=== PATIENT | female | born 1945 | race Caucasian/White ===

== ENCOUNTER → 2016-08-02 | Outpatient (CLI) | payer BC | LOC: COL.RAD 14:17 | DX: M25.532 Pain in left wrist (principal); M67.432 Ganglion, left wrist; M19.032 Primary osteoarthritis, left wrist ==

== ENCOUNTER → 2016-08-15 | Outpatient (CLI) | payer BC | LOC: MC.RAD 11:40 | DX: Z12.31 Encounter for screening mammogram for malignant neoplasm of breast (principal) ==

== ENCOUNTER → 2016-08-19 | Outpatient (CLI) | payer BC | LOC: MC.RAD 10:30 | DX: Z12.39 Encounter for other screening for malignant neoplasm of breast (principal) ==

== ENCOUNTER 2018-12-11 12:43 | Inpatient (IN) | payer BC, MEDICARE ==
[~2018-12-11] VITALS: Ht 167.6 cm; Wt 111.8 kg
[2018-12-11] VITALS (344 sets, daily range): BP systolic 100–126; BP diastolic 66–85; PULSE 75–131; TEMP 97.8–98.1; O2SAT 89–100
[2018-12-11] MEDS ORDERED: WELLBUTRIN XL300 M1 PO (13:18)
[2018-12-11] MEDS ORDERED: TIROSINT88 MC1 PO (13:19)
[2018-12-11] MEDS ORDERED: ALEVE 220MG220 MG (13:19)
[2018-12-11] MEDS ORDERED: ASPIRIN 81M81 MG/TA2 PO (13:20)
[2018-12-11] MEDS ORDERED: ZANTAC 150150 MG (13:20)
[2018-12-11] MEDS ORDERED: PREDNISONE20 MG PO (13:21)
[2018-12-11 13:26] LABS: HEMATOCRIT 39.6 % (37.0-47.0); HEMOGLOBIN 12.8 g/dl (12.5-16.0); MEAN CELL VOLUME 88 fl (80.0-100.0); MEAN CORPUSCULAR HEMOGLOBIN 28 pg (27.0-31.0); MEAN CORPUSCULAR HGB CONC 32 g/dl (33.0-37.0); MEAN PLATELET VOLUME 9.4 fl (7.4-10.4); PLATELET COUNT 410 K/mm3 (130-400); REDCELL DISTRIBUTION WIDTH-CV 16.7 % (11.5-14.5)
[2018-12-11 13:31] LABS: INR 0.9 (0.8-3.0)
[2018-12-11 13:34] LABS: ALBUMIN 3.9 gm/dL (3.5-5.0); BILIRUBIN,TOTAL 0.5 mg/dL (0.0-1.0); CALCIUM 8.9 mg/dL (8.4-10.2); CREATININE, serum 0.89 (0.52-1.25); POTASSIUM 4.1 mmol/L (3.4-5.0); TOTAL PROTEIN 6.7 gm/dL (6.4-8.2)
[2018-12-11 13:46] LABS: TROPONIN-I 0.019 ng/mL (0.000-0.035)
[2018-12-11 13:58] LABS: BAND 1 % (0-10); LYMPHOCYTE 10 % (20.0-51.0); METAMYELOCYTE 1 % (0-0); NEUTROPHILS 88 % (42.0-75.2); PLATELET ESTIMATE INCREASED (NORMAL); TOXIC GRANULATION PRESENT
[2018-12-11 14:04] LABS: TSH w REFLEX 1.26 uIU/mL (0.465-4.680)
--- NOTE | 2018-12-11 15:00 | NUR ---
Pt admitted to ICU bed 3 at this time. Pt arrived via stretcher and placed on librarian helper upon arrival. Pt denies pain or any discomfort. Bed in low position, call light within reach. Maciel Robbins APRN, notified of Pt arrival to unit.
[2018-12-11] MEDS ORDERED: LIVALO2 MG PO (15:22)
--- NOTE | 2018-12-11 15:58 | NUR ---
Admission assessment complete at this time. Plan of care reviewed at bedside with patient. Additional time taken to address any other needs or concerns. Vitals stable at this time. Pt denies pain or any other discomfort at this time. Cardizem gtt currently runing at 15 mg/hr. Bed in low position, call light within reach. Will continue to monitor.
[2018-12-11 18:16] LABS: COLLECTION METHOD CLEAN CATCH
[2018-12-11 18:24] LABS: MUCOUS Present /lpf; PH 6 (5-8); SQUAMOUS EPITHELIAL None Seen /hpf; URINE APPEARANCE Clear; URINE BACTERIA None Seen /hpf; URINE BILIRUBIN Negative (NEGATIVE); URINE BLOOD 1+ (NEGATIVE); URINE COLOR Straw; URINE GLUCOSE Negative (NEGATIVE); URINE KETONE Negative (NEGATIVE); URINE LEUKOCYTE ESTERASE Negative (NEGATIVE); URINE NITRATE Negative (NEGATIVE); URINE PROTEIN(semi-quant) Negative (NEGATIVE); URINE RBC 0-2 /hpf; URINE UROBILINOGEN Negative (NEGATIVE)
--- NOTE | 2018-12-11 19:20 | NUR ---
Bedside report given to ERWIN Srivastava.
--- NOTE | 2018-12-11 19:20 | NUR ---
Received report from ERWIN Singletary.
[2018-12-12] VITALS (576 sets, daily range): BP systolic 98–146; BP diastolic 56–97; PULSE 57–101; TEMP 97.4–98.3; O2SAT 75–100
[2018-12-12 06:31] LABS: HEMOGLOBIN 11.3 g/dl (12.5-16.0); MEAN CELL VOLUME 88 fl (80.0-100.0); MEAN CORPUSCULAR HEMOGLOBIN 29 pg (27.0-31.0); MEAN CORPUSCULAR HGB CONC 33 g/dl (33.0-37.0); MEAN PLATELET VOLUME 9.4 fl (7.4-10.4); PLATELET COUNT 344 K/mm3 (130-400); RED BLOOD COUNT 3.94 M/mm3 (4.10-5.30); REDCELL DISTRIBUTION WIDTH-CV 16.8 % (11.5-14.5)
[2018-12-12 06:42] LABS: ALANINE AMINOTRANSFERASE 93 U/L (9-52); ALBUMIN 3.5 gm/dL (3.5-5.0); ALKALINE PHOSPHATASE 59 U/L (50-136); ANION GAP 8 mmol/L (7-16); AST,SGOT 65 U/L (15-37); BILIRUBIN,TOTAL 0.4 mg/dL (0.0-1.0); BLOOD UREA NITROGEN 23 mg/dL (7-17); CALCIUM 8.5 mg/dL (8.4-10.2); CARBON DIOXIDE 25 mmol/L (22-30); CHLORIDE 106 mmol/L (98-107); CHOLESTEROL 200 mg/dL (120-200); CHOLESTEROL RISK RATIO 2.9; CREATININE, serum 0.67 (0.52-1.25); GLUCOSE 98 mg/dL (74-106); HDL CHOLESTEROL 68 mg/dL; HEMATOCRIT 34.7 % (37.0-47.0); LDL CHOLESTEROL 115 mg/dL; SODIUM 139 mmol/L (137-145); TRIGLYCERIDE 87 mg/dL
[2018-12-12 06:54] LABS: TROPONIN-I < 0.012 ng/mL (0.000-0.035)
--- NOTE | 2018-12-12 07:00 | NUR ---
Gave report to ERWIN Brown.
--- NOTE | 2018-12-12 07:18 | NUR ---
Report received from Carola HOOD and care resumed.
[2018-12-12 07:26] LABS: BAND 2 % (0-10); BASOPHIL 1 % (0-2); EOSINOPHIL 2 % (0-4); LYMPHOCYTE 26 % (20.0-51.0); METAMYELOCYTE 1 % (0-0); NEUTROPHILS 66 % (42.0-75.2); PLATELET ESTIMATE NORMAL (NORMAL)
--- NOTE | 2018-12-12 08:49 | NUR ---
Dr Barba in to see pt. Plan will be for CAMERON/cardioverison. Anesthesia paged as well as automotive glass technician to coordinate times.
--- NOTE | 2018-12-12 09:27 | NUR ---
Dr Barba and Anesthesia at bedside as well as emergency dept tech for CAMERON/cardioversion. Timeout performed with Dr Barba. Procedure time was from 0855 to 0920. Pt remains drowsy at this time. Will continue to follow.
--- NOTE | 2018-12-12 09:39 | NUR ---
Dr Blair in to see pt at this time.
--- NOTE | 2018-12-12 15:07 | NUR ---
Initial visit; Patient thanked Belt Builder Helper for offering God's blessings and letting her know of the availability of [facility].
--- NOTE | 2018-12-12 15:47 | NUR ---
VP CLIENT SERVICES student met with the patient to discuss a discharge plan. The patient lives in [place] with her . The patient does not use DME and reports independence with ADLs. The patient's PCP is Dr. Bradford and patient receives medications from [facility] with no difficulties. The patient does not have advanced directives in the EMR but reports they are completed and designate her . The patient plans to return home upon discharge with providing transportation. There are no additional needs at this time.
--- NOTE | 2018-12-12 19:19 | NUR ---
Report given to Yomaira HOOD and care transfered.
--- NOTE | 2018-12-12 19:20 | NUR ---
Bedside report received from ERWIN Brown
--- NOTE | 2018-12-12 20:00 | NUR ---
Patient awake and watching tv. She is alert and oriented x4. No complaints of pain. Assessment complete. Lungs are clear bilaterally in all hall. HR and rhythm are regular, patient does have an audible murmur. Bowel sounds are active x4. Patient has palpable pulses in all extremities. Patient was provided with bath supplies per her request and a new gown. No further needs at this time. Will continue to monitor. Call light within reach.
--- NOTE | 2018-12-12 22:08 | NUR ---
Report called to ERWIN Ponce on the medical floor. Patient will be brought up shortly.
--- NOTE | 2018-12-12 22:21 | NUR ---
Patient taken to the medical floor at this time via wheelchair. Patient has all belonings with her. Nothing has been left in the room. Patient transferred upstairs by this nurse. Handed off patient to ERWIN Ponce who is present at the bedside. Nothing further at this time.
[2018-12-13 00:05] VITALS: BP 129/63; PULSE 67; TEMP 97.1
[2018-12-13 04:11] VITALS: BP 112/60; PULSE 54; TEMP 97.8
--- NOTE | 2018-12-13 05:59 | NUR ---
Pt feeling much better after coming to this floor from ICU per w/c. Voices no c/o. A&O x4. Tele with SB with HR in the 50's. Slept well tonight. Call light within reach.
[2018-12-13 07:42] VITALS: BP 134/63; PULSE 63; TEMP 96.8
--- NOTE | 2018-12-13 07:47 | NUR ---
Pt resting quietly at shift change. Denies any pain, SOA. Tele with HR in the 50'g. Call light within reach. Up ad immanuel in room.
[2018-12-13 08:34] LABS: HEMOGLOBIN 11.5 g/dl (12.5-16.0); MEAN CELL VOLUME 89 fl (80.0-100.0); MEAN CORPUSCULAR HEMOGLOBIN 28 pg (27.0-31.0); MEAN CORPUSCULAR HGB CONC 32 g/dl (33.0-37.0); MEAN PLATELET VOLUME 9.4 fl (7.4-10.4); PLATELET COUNT 314 K/mm3 (130-400); RED BLOOD COUNT 4.05 M/mm3 (4.10-5.30)
[2018-12-13 08:38] LABS: ALBUMIN 3.6 gm/dL (3.5-5.0); BILIRUBIN,TOTAL 0.5 mg/dL (0.0-1.0); CALCIUM 8.7 mg/dL (8.4-10.2); CREATININE, serum 0.93 (0.52-1.25); POTASSIUM 4.1 mmol/L (3.4-5.0); TOTAL PROTEIN 6.2 gm/dL (6.4-8.2)
[2018-12-13 08:40] LABS: HEMATOCRIT 36.1 % (37.0-47.0)
[2018-12-13 08:55] LABS: BAND 1 % (0-10); EOSINOPHIL 3 % (0-4); LYMPHOCYTE 30 % (20.0-51.0); METAMYELOCYTE 1 % (0-0); NEUTROPHILS 60 % (42.0-75.2); PLATELET ESTIMATE NORMAL (NORMAL)
[2018-12-13 08:56] LABS: ANISOCYTOSIS 1+; HYPOCHROMIA 1+
--- NOTE | 2018-12-13 10:05 | NUR ---
Pt awake and alert upon entry, no C/O pain at this time, shift assessment complete, left pt call light in reach, bed in lowest position.
[2018-12-13 12:15] VITALS: BP 127/50; PULSE 71; TEMP 98.1
[2018-12-13] MEDS ORDERED: ELIQUIS 5MG PO (14:39)
[2018-12-13] MEDS ORDERED: TOPROL XL 25MG25 MG PO (14:39)
[2018-12-13] MEDS ORDERED: TYLENOL 325MG325 MG PO (14:40)
--- NOTE | 2018-12-13 16:56 | NUR ---
Pt discharged to home, escorted to entrance, left via private auto.
== END 2018-12-13 16:58 | disposition home or self-care (01) | DRG 310 ==
LOC: COL.ER 12:43 → ICU 13:36 → MEDICAL 12-12 22:22
PROVIDERS: Emergency Medicine; Nurse Practitioner Family; Physician Assistant; ADMIT Hospitalist
PROC: 5A2204Z Restoration of Cardiac Rhythm, Single (ICD-10-PCS; principal; 2018-12-12)
DX: I48.91 Unspecified atrial fibrillation (principal); F32.9 Major depressive disorder, single episode, unspecified; E03.9 Hypothyroidism, unspecified; M81.0 Age-related osteoporosis without current pathological fracture; M19.90 Unspecified osteoarthritis, unspecified site; E78.5 Hyperlipidemia, unspecified; K21.9 Gastro-esophageal reflux disease without esophagitis; T38.0X5A Adverse effect of glucocorticoids and synthetic analogues, initial encounter; D72.829 Elevated white blood cell count, unspecified; R00.1 Bradycardia, unspecified; R73.9 Hyperglycemia, unspecified; E66.9 Obesity, unspecified; Z68.38 Body mass index [BMI] 38.0-38.9, adult; Z90.710 Acquired absence of both cervix and uterus; Z79.82 Long term (current) use of aspirin
CPT/HCPCS: 99222-AI; 99232-AI; 99239; J2704; J7030; J7512

== ENCOUNTER 2019-01-26 09:24 | Emergency (ER) | payer BC ==
[~2019-01-26] VITALS: Ht 170.2 cm; Wt 107.3 kg
[~2019-01-26 09:24] MED LIST: ALEVE 220MG220 MG; ASPIRIN 81M81 MG/TA2 PO; ELIQUIS 5MG PO; LIVALO2 MG PO; PREDNISONE20 MG PO; TIROSINT88 MC1 PO; TOPROL XL 25MG25 MG PO; TYLENOL 325MG325 MG PO; WELLBUTRIN XL300 M1 PO; ZANTAC 150150 MG
[2019-01-26 09:35] VITALS: TEMP 97.3
[2019-01-26] MEDS ORDERED: FLEXERIL 1010 MG/TAB PO (09:59)
[2019-01-26] MEDS ORDERED: PEN-VEE K500 MG PO (10:01)
[2019-01-26 11:06] VITALS: BP 147/78; PULSE 68
== END 2019-01-26 11:04 | disposition home or self-care (01) ==
LOC: COL.ER 09:24
DX: R04.0 Epistaxis (principal); I48.91 Unspecified atrial fibrillation; Z79.01 Long term (current) use of anticoagulants

== ENCOUNTER 2019-03-08 07:28 | Day surgery (SDC) | payer BC ==
[~2019-03-08] VITALS: Ht 167.6 cm; Wt 106.8 kg
[~2019-03-08 07:28] MED LIST changes: +FLEXERIL 1010 MG/TAB PO; +PEN-VEE K500 MG PO
[2019-03-08] MEDS ORDERED: ELIQUIS 5MG PO (07:56)
[2019-03-08] MEDS ORDERED: AMBIEN 5MG TABLE5 MG PO (07:57)
[2019-03-08 08:11] VITALS: BP 177/98; PULSE 68; TEMP 97.3
[2019-03-08 09:00] VITALS: BP 162/78; PULSE 59; TEMP 97.3
--- NOTE | 2019-03-08 09:00 | NUR ---
TO BAY 6 PER CART FROM ENDOSCOPY. ALERT ORIENTED X3, TALKING TO STAFF AND . AMBULATED TO RECLINER WITH ASSIST.
[2019-03-08 09:15] VITALS: BP 154/73; PULSE 51
--- NOTE | 2019-03-08 09:15 | NUR ---
DR ARMSTRONG INTO TALK WITH PATIENT AND HER .
--- NOTE | 2019-03-08 09:20 | NUR ---
ATE 100% AND TOLERATED WELL.
--- NOTE | 2019-03-08 09:30 | NUR ---
DISCONTINUED IV AND INT- PATIENT GETTING DRESSED
--- NOTE | 2019-03-08 09:40 | NUR ---
RECEIVED WATER AND CRACKERS
--- NOTE | 2019-03-08 09:40 | NUR ---
RECEIVED DISCHARGE INSTRUCTIONS AND VERBALIZED UNDERSTANDING.
--- NOTE | 2019-03-08 09:55 | NUR ---
DISCHARGED PER WC BY NURSING STAFF TO PRIVATE CAR IN CARE OF -[facility]
== END 2019-03-08 10:02 | disposition home or self-care (01) ==
LOC: SDCO 07:28
DX: Z12.11 Encounter for screening for malignant neoplasm of colon (principal); Z86.010 Personal history of colon polyps
CPT/HCPCS: J2405; J2704; J7030

== ENCOUNTER 2021-04-03 05:29 | Emergency (ER) | payer BC ==
[~2021-04-03] VITALS: Ht 167.6 cm; Wt 109.1 kg
[~2021-04-03 05:29] MED LIST changes: +AMBIEN 5MG TABLE5 MG PO
[2021-04-03 05:35] VITALS: TEMP 97.4
[2021-04-03 05:49] LABS: BASO # 0.1 K/mm3 (0.0-0.2); BASO % 0.5 % (0.0-2.0); EOS # 0.2 K/mm3 (0.0-0.7); EOS % 1.8 % (0.0-4.0); GRAN # 8.1 K/mm3 (1.4-6.5); GRAN % 69.6 % (42.2-75.2); HEMATOCRIT 40.1 % (37.0-47.0); HEMOGLOBIN 13.1 g/dl (12.5-16.0); LYMPH # 2.6 K/mm3 (1.2-3.4); LYMPH % 22.1 % (20.0-51.0); MEAN CELL VOLUME 86 fl (80.0-100.0); MEAN CORPUSCULAR HEMOGLOBIN 28 pg (27-31); MEAN CORPUSCULAR HGB CONC 33 g/dl (33.0-37.0); MEAN PLATELET VOLUME 9.1 fl (7.4-10.4); MONO # 0.6 K/mm3 (0.1-0.6); MONO % 5.5 % (1.7-9.3); PLATELET COUNT 342 K/mm3 (130-400); RED BLOOD COUNT 4.69 M/mm3 (4.10-5.30); REDCELL DISTRIBUTION WIDTH-CV 15.6 % (11.5-14.5)
[2021-04-03 06:08] LABS: ALANINE AMINOTRANSFERASE 13 U/L (0-55); ALBUMIN 3.9 gm/dL (3.4-4.8); ALKALINE PHOSPHATASE 73 U/L (40-150); ANION GAP 10 mmol/L (7-16); AST,SGOT 17 U/L (5-34); BILIRUBIN,TOTAL 0.5 mg/dL (0.2-1.2); BLOOD UREA NITROGEN 21 mg/dL (10-20); CARBON DIOXIDE 21 mmol/L (23-31); CHLORIDE 107 mmol/L (98-107); CREATININE, serum 1.01 mg/dL (0.57-1.11); GLUCOSE 107 mg/dL (70-99); MAGNESIUM 2.4 mg/dL (1.6-2.6); POTASSIUM 3.8 mmol/L (3.5-4.5); SODIUM 138 mmol/L (136-145); TOTAL PROTEIN 7.5 gm/dL (6.2-8.1)
[2021-04-03 06:15] LABS: TROPONIN-I < 0.010 ng/mL (0.00-0.033)
[2021-04-03 07:02] VITALS: BP 118/72; PULSE 61
== END 2021-04-03 07:14 | disposition home or self-care (01) ==
LOC: COL.ER 05:29
PROVIDERS: Emergency Medicine
DX: I48.91 Unspecified atrial fibrillation (principal); I48.92 Unspecified atrial flutter; F32.A Depression, unspecified; E78.5 Hyperlipidemia, unspecified; K21.9 Gastro-esophageal reflux disease without esophagitis; I10 Essential (primary) hypertension; E66.9 Obesity, unspecified; E03.9 Hypothyroidism, unspecified; Z68.38 Body mass index [BMI] 38.0-38.9, adult; Z79.890 Hormone replacement therapy; Z79.82 Long term (current) use of aspirin; Z79.01 Long term (current) use of anticoagulants; Z79.899 Other long term (current) drug therapy
CPT/HCPCS: J7040

== ENCOUNTER 2021-06-02 09:15 | Outpatient (RCR) | payer BC | END 2021-06-03 | disposition still patient (30) | LOC: WSPT | DX: R53.1 Weakness (principal) ==

== ENCOUNTER 2021-06-04 10:53 | Outpatient (RCR) | payer BC | END 2021-06-04 11:00 | disposition home or self-care (01) | LOC: WSPT 10:53 | DX: R53.1 Weakness (principal) ==

== ENCOUNTER → 2021-07-22 | Outpatient (CLI) | payer BC | LOC: MC.RAD 11:30 | DX: Z12.31 Encounter for screening mammogram for malignant neoplasm of breast (principal) ==

== ENCOUNTER 2022-01-10 09:51 | Observation (INO) | payer BC, MEDICARE ==
[~2022-01-10] VITALS: Ht 167.6 cm; Wt 111.3 kg
[2022-01-10 10:24] LABS: BASO % 0.5 % (0.0-2.0); EOS # 0.3 K/mm3 (0.0-0.7); GRAN % 65.4 % (42.2-75.2); HEMATOCRIT 40.5 % (37.0-47.0); HEMOGLOBIN 12.9 g/dl (12.5-16.0); LYMPH # 1.8 K/mm3 (1.2-3.4); MEAN CELL VOLUME 88 fl (80.0-100.0); MEAN CORPUSCULAR HEMOGLOBIN 28 pg (27-31); MEAN CORPUSCULAR HGB CONC 32 g/dl (33.0-37.0); MEAN PLATELET VOLUME 9.6 fl (7.4-10.4); MONO # 0.4 K/mm3 (0.1-0.6); MONO % 5.7 % (1.7-9.3); PLATELET COUNT 316 K/mm3 (130-400); RED BLOOD COUNT 4.61 M/mm3 (4.10-5.30); REDCELL DISTRIBUTION WIDTH-CV 15.7 % (11.5-14.5)
[2022-01-10 10:42] LABS: ALBUMIN 3.9 gm/dL (3.4-4.8); BILIRUBIN,TOTAL 0.4 mg/dL (0.2-1.2); CALCIUM 9.1 mg/dL (8.4-10.2); CREATININE, serum 0.88 mg/dL (0.57-1.11); POTASSIUM 4.3 mmol/L (3.5-4.5); TOTAL PROTEIN 7.5 gm/dL (6.2-8.1)
[2022-01-10 10:49] LABS: TROPONIN-I 0.049 ng/mL (0.00-0.033)
[2022-01-10 10:54] LABS: COLLECTION METHOD CLEAN CATCH
[2022-01-10 11:54] LABS: PH 5.5 (5.0-8.5); SQUAMOUS EPITHELIAL None Seen /hpf (0-10); URINE APPEARANCE Clear (CLEAR/HAZY); URINE BACTERIA None Seen /hpf (NONE SEEN); URINE COLOR Yellow (YELLOW); URINE GLUCOSE Negative (NEGATIVE); URINE KETONE Negative (NEGATIVE); URINE PROTEIN(semi-quant) Negative (NEGATIVE)
[2022-01-10 11:55] LABS: URINE BLOOD Negative (NEGATIVE); URINE NITRATE Positive (NEGATIVE); URINE UROBILINOGEN 0.2 E.U/dL (0.2-1.0)
[2022-01-10] MEDS ORDERED: LIPITOR 10MG10 MG PO (12:53)
[2022-01-10] MEDS ORDERED: XARELTO20 MG PO (12:55)
[2022-01-10] MEDS ORDERED: CORDARONE200 MG/TAB PO (13:15)
[2022-01-10] MEDS ORDERED: NORVASC 5MG5 MG/TAB PO (13:16)
[2022-01-10] MEDS ORDERED: TOPROL XL 25MG25 MG PO (13:22)
[2022-01-10] MEDS ORDERED: NORCO 325 MG-51 TAB PO (13:23)
[2022-01-10] MEDS ORDERED: PERIDEX (CHLOR480 ML MM (13:23)
[2022-01-10] MEDS ORDERED: FLONASE SENSIM9.9 ML NS (13:24)
[2022-01-10 13:45] VITALS: BP 150/71; PULSE 59; TEMP 97.8
[2022-01-10] MEDS ORDERED: VITAMIN C500 MG PO (13:48)
[2022-01-10] MEDS ORDERED: FERROUS SU325 MG/TAB PO (13:49)
[2022-01-10] MEDS ORDERED: FOLIC ACID 11 MG/TA1 PO (13:49)
[2022-01-10 15:27] VITALS: BP 137/59; PULSE 63; TEMP 97.9
--- NOTE | 2022-01-10 18:29 | NUR ---
Pt reported headache upon arrival to the floor. Improved with PRN Tylenol. BP improved following med administration. No needs at this time. Call light within reach.
[2022-01-10 21:03] VITALS: BP 153/72; PULSE 60; TEMP 97.6
--- NOTE | 2022-01-10 21:07 | NUR ---
PATIENT IN BED TALKING ON CELL PHONE AT THIS TIME. PATIENT DENIES PAIN, NEEDS OR CONCERNS AT THIS TIME. PATIENT HAS CALL LIGHT WITHIN REACH AND INSTRUCTED TO CALL WITH ANY NEEDS OR CONCERNS. PATIENT STATES UNDERSTANDING.
[2022-01-11 00:29] VITALS: BP 125/46; PULSE 62; TEMP 97.7
[2022-01-11 04:27] VITALS: BP 113/43; PULSE 54; TEMP 97.8
--- NOTE | 2022-01-11 04:29 | NUR ---
PATIENT BLOOD PRESSURES 125/46 AND 113/43. PATIENT IS ASYMPTOMATIC AND DENIES ANY SYMPTOMS. PATIENT ENCOURAGED TO CALL WITH ANY SYMPTOMS OR CONCERNS. PATIENT STATES UNDERSTANDING.
[2022-01-11 07:00] LABS: BASO % 0.6 % (0.0-2.0); EOS # 0.3 K/mm3 (0.0-0.7); EOS % 4.1 % (0.0-4.0); GRAN # 4.3 K/mm3 (1.4-6.5); GRAN % 59.7 % (42.2-75.2); HEMOGLOBIN 11.8 g/dl (12.5-16.0); LYMPH # 2.1 K/mm3 (1.2-3.4); MEAN CELL VOLUME 85 fl (80.0-100.0); MEAN CORPUSCULAR HEMOGLOBIN 28 pg (27-31); MEAN CORPUSCULAR HGB CONC 33 g/dl (33.0-37.0); MEAN PLATELET VOLUME 9.7 fl (7.4-10.4); MONO # 0.4 K/mm3 (0.1-0.6); MONO % 5.3 % (1.7-9.3); PLATELET COUNT 302 K/mm3 (130-400); RED BLOOD COUNT 4.22 M/mm3 (4.10-5.30); REDCELL DISTRIBUTION WIDTH-CV 15.8 % (11.5-14.5)
[2022-01-11 07:16] LABS: TROPONIN-I 0.011 ng/mL (0.00-0.033)
[2022-01-11 07:20] LABS: CALCIUM 8.6 mg/dL (8.4-10.2); CREATININE, serum 0.86 mg/dL (0.57-1.11); MAGNESIUM 2.2 mg/dL (1.6-2.6)
[2022-01-11 07:45] VITALS: BP 132/58; PULSE 58; TEMP 97.9
[2022-01-11] MEDS ORDERED: PRINIVIL20 MG PO (08:36)
[2022-01-11] MEDS ORDERED: NORVASC 10MG10 MG PO (08:36)
--- NOTE | 2022-01-11 10:00 | NUR ---
Orthostatic B/P completed. All BP WNL, primary nurse notified. Educated pt on s/s of hypotension
--- NOTE | 2022-01-11 10:41 | NUR ---
0730 Assessment complete. Pt resting in bed with eyes closed. Telemetry is on, HR is regular. Bilateral LE edema +1. Pt denies pain in bilateral lower extremeties. Pt reports headache 4/10, primary nurse notified. INT in L AC, intact, no redness, no edema.
[2022-01-11 11:02] VITALS: BP 118/72; PULSE 59; TEMP 97.9
--- NOTE | 2022-01-11 11:02 | NUR ---
SW met with the patient to discuss discharge plan. The patient lives in [place] with her , [place] (ph#[phone]). She reports independence with ADLs and does not have any DME. The patient's PCP is Dr. Lance Bradford and she receives her medications from [facility]. The patient does not have a DPOA-HC in EMR, but she states that she does have one completed and that it designates her . The patient plans to return home with her upon discharge. No additional needs at this time. *Discharge plan: home with *
--- NOTE | 2022-01-11 14:00 | NUR ---
Shift assessment preformed. Scheduled medications given. VSS. Patient A&O. Patient deemed fit for discharge. IV dc'd, catheter intact, no signs of phlebitis. Discharge education/instructions given. All questions answered. Patient given one does of prn tylenol for headache rated a 4/10, but currently denies any pain. Patient denies any further pain, discomfort, SOA, or further needs at this time. Patient ambulated from building escorted by [facility] Staff. transporting home.
--- NOTE | 2022-01-11 14:05 | NUR ---
Mone: No buddhism preference Situation: performance instructor stopped by room on rounds Background: Pt was resting and content Assessment: Pt has no needs but appreciated the visit Recommendation: performance instructor will follow up as needed
== END 2022-01-11 13:46 | disposition home or self-care (01) ==
LOC: COL.ER 09:51 → MEDICAL 11:15
PROVIDERS: Emergency Medicine; ADMIT Internal Medicine
DX: I16.0 Hypertensive urgency (principal); I48.0 Paroxysmal atrial fibrillation; I35.0 Nonrheumatic aortic (valve) stenosis; E03.9 Hypothyroidism, unspecified; Z79.01 Long term (current) use of anticoagulants; Z79.899 Other long term (current) drug therapy; E78.5 Hyperlipidemia, unspecified
CPT/HCPCS: G0378; J0360; J0696

== ENCOUNTER → 2022-03-29 | Outpatient (CLI) | payer BC ==
[~2022-03-29] MED LIST changes: +CORDARONE200 MG/TAB PO; +FERROUS SU325 MG/TAB PO; +FLONASE SENSIM9.9 ML NS; +FOLIC ACID 11 MG/TA1 PO; +LIPITOR 10MG10 MG PO; +NORCO 325 MG-51 TAB PO; +NORVASC 10MG10 MG PO; +NORVASC 5MG5 MG/TAB PO; +PERIDEX (CHLOR480 ML MM; +PRINIVIL20 MG PO; +VITAMIN C500 MG PO; +XARELTO20 MG PO
== END ==
LOC: COL.RAD 07:30
DX: R93.5 Abnormal findings on diagnostic imaging of other abdominal regions, including retroperitoneum (principal)

== ENCOUNTER → 2023-11-08 | Outpatient (CLI) | payer BC | LOC: COL.VAS 08:16 | DX: I65.23 Occlusion and stenosis of bilateral carotid arteries (principal); G31.9 Degenerative disease of nervous system, unspecified; I51.7 Cardiomegaly; Q23.0 Congenital stenosis of aortic valve ==

== ENCOUNTER → 2023-12-11 | Outpatient (CLI) | payer BC ==
[~2023-12-11] MED LIST changes: +Iohexol 300 - 100 ML VIAL IV ONE; +NS 100 ML IV SCH
== END ==
LOC: COL.RAD 14:13
DX: H53.9 Unspecified visual disturbance (principal); R26.89 Other abnormalities of gait and mobility
CPT/HCPCS: Q9967